=== PATIENT | male | born 1985 | race Two or more races ===

== ENCOUNTER 2024-09-23 13:17 | Emergency (ER) | payer MEDICAID, SELFPAY ==
[2024-09-23] VITALS (8 sets, daily range): BP systolic 125–146; BP diastolic 83–110; PULSE 63–82; RESP 13–23; TEMP 36.8–37.1; O2SAT 96–99; BMI 26.6
--- NOTE | 2024-09-23 13:28 | EKG_ITS ---
[facility] Test Date: 2024-09-23 Pat Name: JEANNE HICKS Department: Room: - Gender: Male [employer]: : 1985 Requested By: Kaykay rOtiz Order Number: [id number] Reading MD: Kaykay Ortiz Measurements Intervals [place] Rate: 69 P: 45 MD: 146 QRS: 81 QRSD: 161 T: 30 QT: 394 QTc: 424 Interpretive Statements SINUS RHYTHM WITH OCCASIONAL SUPRAVENTRICULAR PREMATURE COMPLEXES RIGHT BUNDLE BRANCH BLOCK [120+ ms QRS DURATION, UPRIGHT V1, 40+ ms S IN I/aVL/V4/V5/V6] Compared to ECG 09/24/2018 09:12:15 No significant changes /store/S0/[id number].pdf
--- NOTE | 2024-09-23 13:29 | PD.EDWEAK ---
ED Weakness RME/HPI General Chief complaint: Weakness Stated complaint: HANDS WENT NUMB, WEAK, DIFF SMILING, NAUCEOUS Time Seen by Provider: 09/23/24 13:26 Source: patient and family Arrival date/time: 09/23/24 13:17 Limitations: no limitations RME / HPI RME / HPI Narrative: 39-year-old male who is brought in by family members. He has a history of hypertension, hyperlipidemia, but is not taking his medications. He is here today for generalized weakness and tremors that he developed this afternoon while driving. Denies any falls or injuries. Has no unilateral weakness. No facial droop. Denies any chest pain or palpitations. He does endorse some mild abdominal discomfort but has no vomiting or diarrhea. Has no urinary complaints. Has no lower leg edema. He states he drinks daily and normally consumes minimum 5-6 beers. He states he is last drink was this morning. He states he drank 1 beer. He has no history of seizures. Denies smoking. Denies any drug abuse. Related Data Previous Rx's ?Medication ?Instructions ?Recorded aspirin 81 mg tablet,delayed 81 mg PO QDAY #30 tabs 09/25/18 release (Adult Aspirin Regimen) atorvastatin 40 mg tablet 40 mg PO QPM #30 tabs 09/25/18 metoprolol succinate 25 mg capsule 25 mg PO QDAY #30 ea 09/25/18 sprinkle, ext. release 24 hr nitroglycerin 0.4 mg sublingual 0.4 mg buccal [id number] PRN chest 09/25/18 tablet pain #100 tabs Allergies Allergy/AdvReac Type Severity Reaction Status Date / Time No Known Allergies Allergy Verified 09/23/24 13:21 Review of Systems Review of Systems Systems Reviewed: All systems reviewed, normal except as documented ED Exam General Limitations: Present no limitations General appearance: Present alert and anxious Head Head exam: Present atraumatic Eye Eye exam: Present normal appearance, PERRL and EOMI ENT ENT exam: Present normal exam, normal oropharynx and mucous membranes moist Neck Neck exam: Present normal inspection, full ROM and trachea midline Chest Chest inspection: Present normal inspection and symmetric chest wall rise Respiratory Respiratory exam: Present normal lung sounds bilaterally Cardiovascular Cardiovascular exam: Present regular rate, normal rhythm and normal heart sounds Abdominal Exam Abdominal exam: Present soft and normal bowel sounds Extremities Exam Extremities exam: Present normal inspection and full ROM Back Exam Back exam: Present normal inspection and full ROM Neurological Exam Neurological exam: Present alert, oriented X3 and other (Resting tremors are present) Psychiatric Psychiatric exam: Present normal affect and normal mood Skin Skin exam: Present warm, dry, intact and normal color Course Quality Measures none Orders Category Date Time Status EKG (ED ONLY) *Do not use* NOW Care 09/23/24 13:28 Completed EKG (ED Only) Stat Exams 09/23/24 13:28 Draft Alcohol, Blood Medical Stat Lab 09/23/24 13:48 Completed CBC Stat Lab 09/23/24 13:48 Completed CMP [Comprehensive Metabolic Panel] Stat Lab 09/23/24 13:48 Completed Drug Screen,Urine Stat Lab 09/23/24 14:15 Completed Lipase Stat Lab 09/23/24 13:48 Completed TSH [Thyroid Stimulating Hormone] Stat Lab 09/23/24 13:48 Completed UA, C/S IF [Urinalysis, C/S if Indicated] Stat Lab 09/23/24 14:15 Completed Diazepam Inj [Valium Inj] Med 09/23/24 15:55 Discontinued 2 mg IVP X1 ONE Diazepam Inj [Valium Inj] Med 09/23/24 13:27 Discontinued 5 mg IVP X1 ONE Ondansetron Inj [Zofran Inj] Med 09/23/24 13:28 Discontinued 4 mg IVP X1 ONE Vital Signs Vital signs: Vital Signs Temperature 98.3 F 09/23/24 13:30 Pulse Rate 74 09/23/24 13:30 Respiratory Rate 20 09/23/24 13:30 Blood Pressure 132/96 H 09/23/24 13:30 Pulse Oximetry (%) 99 09/23/24 13:30 Oxygen Delivery Method Room Air 09/23/24 13:30 Weakness MDM Narrative MDM Narrative:: 39-year-old male who is brought in by family members. He has a history of hypertension, hyperlipidemia, but is not taking his medications. He is here today for generalized weakness and tremors that he developed this afternoon while driving. Denies any falls or injuries. Has no unilateral weakness. No facial droop. Denies any chest pain or palpitations. He does endorse some mild abdominal discomfort but has no vomiting or diarrhea. Has no urinary complaints. Has no lower leg edema. He states he drinks daily and normally consumes minimum 5-6 beers. He states he is last drink was this morning. He states he drank 1 beer. He has no history of seizures. Denies smoking. Denies any drug abuse. On exam, patient is mildly anxious appearing. He has resting tremors. VSS. He is not reacting to any external stimuli. He has no seizure activity. His workup was unremarkable exception of his alcohol level mildly elevated LFTs.. Patient states he has been drinking daily for over 20 years. We discussed his liver function test and need to discontinue alcohol. We had a long detailed discussion regarding hospital admission. Patient states he would like to go home and will try to discontinue alcohol use in that route. We discussed the risk of alcohol withdrawal including worsening symptoms, increased tremors, or seizures. Patient initially wanted to go home and discharge paperwork was being prepared. He then opted to stay in the hospital. Case discussed with the resident hospitalist team who will evaluate the patient for admission. Patient data External records reviewed:: None Clinical information provided by:: none Social determinants that could affect healthcare access:: alcohol use Patient has the following chronic illnesses:: alc How is presenting disease/condition affected by chronic disease/condition?: exacerbated by Evaluation data The following diagnostics were reviewed and interpreted by me:: other (specify) Lab and/or radiology exams considered but not ordered:: n/a Interpretation Summary: negative work up. Medications / Prescriptions Medications or Prescriptions considered but not ordered:: n/a Medication administrations:: Medication Administration History Discontinued Medications Diazepam (Diazepam Inj 5 Mg/Ml Vial 2 Ml) 5 mg IVP X1 ONE Stop: 09/23/24 13:28 Last Admin: 09/23/24 15:04 Dose: 5 mg Documented By: CAROL Diazepam (Diazepam Inj 5 Mg/Ml Vial 2 Ml) 2 mg IVP X1 ONE Stop: 09/23/24 15:56 Last Admin: 09/23/24 16:11 Dose: 2 mg Documented By: CAROL Ondansetron HCl (Ondansetron Inj 2 Mg/Ml Inj 2 Ml) 4 mg IVP X1 ONE; Protocol Stop: 09/23/24 13:29 Last Admin: 09/23/24 15:03 Dose: 4 mg Documented By: CAROL see above Consultations Consultation(s) initiated? (list below): No Diagnosis Weakness Differential Diagnosis: other Most likely diagnosis given after review of the tests above:: alcohol abuse Admission Indicated Admission indicated?: not indicated Admission Request Was there a request for admission?: No Disposition Plan Disposition Plan: Discharge Discharge Attestation Discharge Attestation: The patient and all family members were given an opportunity to ask questions and understood the discharge instructions. Discharge instructions specifically effects, indications for sooner follow up or return to the emergency department, and the expected course of current diagnosis. Patient condition: Stable Discharge Plan Plan Patient Disposition: Admit Acute Care w/in Hospital Patient condition on transfer: Stable Prescriptions/Referrals Prescriptions/Med Rec: No Action aspirin [Adult Aspirin Regimen] 81 mg tablet,delayed release (DR/EC) 81 mg PO QDAY Qty: 30 0RF atorvastatin 40 mg tablet 40 mg PO QPM Qty: 30 0RF metoprolol succinate 25 mg capsule,sprinkle,ER 24hr 25 mg PO QDAY Qty: 30 0RF nitroglycerin 0.4 mg tablet, sublingual 0.4 mg BUCCAL [id number] PRN (Reason: chest pain) Qty: 100 0RF Referrals: No Primary/Family,Physician [Primary Care Provider] - In 1 week Problem List Clinical Impression: Alcoholism, Alcohol withdrawal Patient/Caregiver Discharge Instructions Additional Instructions: - Your chronic alcohol abuse has begin to affect your liver. The symptoms you are having today are likely due to withdrawals. - It is very important that you follow-up with your primary doctor closely. Obtain assistance and alcohol abuse and consider discontinue alcohol. - You are invited to return at anytime for any worsening or emergent changes. Print Language: Bhutanese Stand Alone Forms: [employer] Award Info., Patient Portal Info Letter
[2024-09-23 14:11] LABS: Basophils # (Auto) 0.0 Thou/mm3 (0.0-0.2); Basophils % (Auto) 1 % (0-2.5); Eosinophils # (Auto) 0.1 Thou/mm3 (0.0-0.5); Eosinophils % (Auto) 1 % (0-10); Hematocrit 41.4 % (41.0-53.0); Hemoglobin 14.3 g/dL (13.5-16.0); Immature Granulocytes Auto 0.00 Thou/mm3 (0.00-0.00); Lymphocytes # (Auto) 0.9 Thou/mm3 (1.0-4.8); Lymphocytes % (Auto) 20 % (10-50); Mean Corpuscular HGB Conc 34.5 g/dl (31.0-37.0); Mean Corpuscular Hemoglobin 31.0 pg (25.0-35.0); Mean Corpuscular Volume 90 fL (80-100); Monocytes # (Auto) 0.3 Thou/mm3 (0.0-0.8); Monocytes % (Auto) 7 % (0-12); Neutrophils # (Auto) 3.3 Thou/mm3 (1.8-7.7); Neutrophils % (Auto) 72 % (37-80); Nucleated Red Blood Cell # 0.00 Thou/mm3 (0.00-0.00); Nucleated Red Blood Cell % 0 /100 WBC (0); Platelet Count 178 Thou/mm3 (140-440); RDW Standard Deviation 45.1 fL (35.1-43.9); Red Blood Count 4.61 Miln/mm3 (4.50-5.90); White Blood Count 4.7 Thou/mm3 (3.8-10.6)
[2024-09-23 14:31] LABS: Alanine Aminotransferase 80 U/L (10-49); Albumin, Serum 5.0 gm/dL (3.5-5.0); Albumin/Globulin Ratio 1.4 (1.2-2.2); Alcohol, Blood Medical 33.5 mg/dL (0-10.0); Alkaline Phosphatase 65 U/L (46-116); Anion Gap 17 (7-16); Aspartate Amino Transferase 100 U/L (0-34); BUN/Creatinine Ratio 13 Ratio (12-20); Bilirubin,Total 0.7 mg/dL (0.3-1.2); Blood Urea Nitrogen 15 mg/dL (9-23); Calcium 10.1 mg/dL (8.3-10.6); Calcium (Corrected) 10.1 mg/dL (8.5-10.1); Carbon Dioxide 23.2 mMol/L (20.0-31.0); Chloride 101 mMol/L (98-107); Creatinine (Component) 1.2 mg/dL (0.6-1.3); Globulin 3.7 gm/dL (2.3-3.5); Glucose 129 mg/dL (74-106); Lipase 37 U/L (12-53); Osmolality,Calculated 284 (275-295); Potassium 3.5 mMol/L (3.4-5.1); Sodium 141 mMol/L (136-145); Thyroid Stimulating Hormone 1.31 uIU/mL (0.55-4.78); Total Protein 8.7 gm/dL (5.7-8.2); eGFR > 60 See Note
[2024-09-23 14:36] LABS: Collection Type, Urine Voided
[2024-09-23 14:49] LABS: Bilirubin,Urine Negative (Negative); Blood,Urine Negative (Negative); Clarity,Urine Clear (Clear/Hazy); Color,Urine Yellow (Lt Yel-Yel); Culture Indicated,Urine Not Indicated; Glucose, Urine Negative (Negative); Hyaline Casts,Urine < 1 /hpf (0-1); Ketones,Urine 1+ (Negative); Leukocyte Esterase,Urine Negative (Negative); Nitrite,Urine Negative (Negative); PH,Urine 7.0 (5.0-7.0); Protein,Urine 1+ (Neg - Trace); RBC,Urine 2 /hpf (0-3); Specific Gravity,Urine 1.031 (1.001-1.035); Squamous Epithelial Cell,Urine 1 /hpf (0-5); Urobilinogen,Urine Negative mg/dL (0.0-1.0); WBC,Urine 2 /hpf (0-5)
[2024-09-23 14:58] LABS: Amphetamine/Methamp Scrn,U Negative (Negative); Barbiturate Screen,Urine Negative (Negative); Benzodiazepines Screen,Urine Negative (Negative); Benzoylecgonine Screen, Ur Negative (Negative); Fentanyl Screen,Urine Negative (Negative); Opiate Screen,Urine Negative (Negative); THC Screen,Urine Negative (Negative)
[2024-09-23] MEDS: ONDANSETRON INJ 2 MG/ML INJ 2 ML 4 MG IVP (15:03)
[2024-09-23] MEDS: DIAZEPAM INJ 5 MG/ML VIAL 2 ML IVP (15:04)
--- NOTE | 2024-09-23 15:45 | PC.NURSE ---
pt came in due to having nausea and weakness with shaking and he is an everyday drinker of beer. pt stated that he drinks about 6-7 tall beers in a day. pt alcohol score was 11 and pt was given Valium which helped with s/s. pt placed on monitor and pulse ox. family at bedside
[2024-09-23] MEDS: DIAZEPAM INJ 5 MG/ML VIAL 2 ML 2 MG IVP (16:11)
== END 2024-09-23 19:06 | disposition home or self-care (01) ==
PROVIDERS: Emergency Provider Physician Assistant Medical
DX: F10.239 Alcohol dependence with withdrawal, unspecified (principal); Y90.1 Blood alcohol level of 20-39 mg/100 ml; I49.1 Atrial premature depolarization; I45.10 Unspecified right bundle-branch block; I10 Essential (primary) hypertension
CPT/HCPCS: 36415; 80053; 80307; 80320; 81001; 83690; 84443; 85025; 93005; 96374; 96375; 96376; 99283; J2405; J3360; G0480